=== PATIENT | male | born 1960 | race Two or more races ===

== ENCOUNTER 2018-12-03 12:59 | Emergency (ER) | payer OTHER ==
[~2018-12-03] VITALS: Ht 157.5 cm; Wt 81.6 kg
[2018-12-03] MEDS ORDERED: NKM (13:28)
[2018-12-03] MEDS ORDERED: Albuterol ud Inhalation HHN ONE (13:45)
--- NOTE | 2018-12-03 14:21 | NUR ---
Nursing Notes: Patient complaining of feeling dizzy and anxious while at work, also experienced to have tightness around throat, came to ER for assessment. patient is awake and alert to name, time, place, and situaition, no pain reported at this time,
[2018-12-03 14:30] VITALS: BP 139/88
--- NOTE | 2018-12-03 14:40 | Diagnostic Imaging Report ---
Indication: Dyspnea Comparison: None A single view chest radiograph was obtained. Findings: Cardiomediastinal appearance is within normal limits for age. The lungs are clear. Pulmonary vascularity is appropriate. The diaphragmatic contour is smooth and costophrenic angles are sharp. No pleural effusions are identified. The bones are unremarkable. Impression: No acute findings
--- NOTE | 2018-12-03 15:13 | Emergency Room Report ---
History of Present Illness General Chief Complaint: Dizziness Source: Patient Present Illness HPI Patient is a 58-year-old male presents after increased difficulty with breathing. Patient states that this had began while driving. He reports having increased tightness to his chest. He denies any fever. He reports having some tightness to the throat. Patient had been at work and driving at the time of onset. He denies any prior history of similar symptoms in the past. He does not take any medications regularly. He had not been vomiting or having any diarrhea. He reports some subjective fever. Denies leg pain or swelling. No abdominal pain. Denies recent chemical exposure. Allergies: Coded Allergies: IBUPROFEN (Verified Allergy, Unknown, 12/03/18) Patient History Past Medical History: see triage record Reviewed Nursing Documentation: PMH: Agreed; PSxH: Agreed Nursing Documentation-PMH Past Medical History: No Stated History Review of Systems All Other Systems: negative except mentioned in HPI Physical Exam Vital Signs Date Time Temp Pulse Resp B/P (MAP) Pulse Ox O2 Delivery O2 Flow Rate FiO2 12/03/18 13:25 99.0 70 19 159/90 (113) 96 Room Air 12/03/18 14:30 21 12/03/18 14:31 8.0 Sp02 EP Interpretation: reviewed, normal General Appearance: normal inspection, well appearing, no apparent distress, alert, GCS 15 Head: atraumatic ENT: normal ENT inspection, hearing grossly normal, normal voice, pharyngeal erythema Neck: normal inspection, full range of motion, supple, no bony tend Respiratory: normal inspection, normal breath sounds, no respiratory distress, no retraction, wheezing - slight good air movement Cardiovascular #1: regular rate, rhythm, no edema Gastrointestinal: normal inspection, normal bowel sounds, non tender, soft, no guarding, no hernia Genitourinary: no CVA tenderness Musculoskeletal: normal inspection, back normal, normal range of motion Neurologic: normal inspection, alert, oriented x3, responsive, director records management III-XII nml as tested, speech normal Psychiatric: normal inspection, judgement/insight normal, mood/affect normal Skin: no rash, normal color, normal inspection, warm/dry Lymphatic: normal inspection Medical Decision Making Diagnostic Impression: Primary Impression: Bronchospasm ER Course Patient presented for shortness of breath. Differential included but was not limited to anemia, pneumonia, pneumothorax, myocardial infarction, pericardial effusion, congestive heart failure, acidosis. Because of complexity of patient' s case laboratory tests and imaging studies were ordered. Patient was noted to have some associated shortness of breath which appears to be related to bronchospasm. EKG interpreted by me showed normal sinus rhythm without acute ST or T wave changes. Chest x-ray 1 view read by radiology showed no evidence of acute infiltrate or cardiomegaly with normal mediastinum. Patient does not have any known risk factors for pulmonary embolism. Patient was given breathing treatments as well as steroids with improvement in his difficulty with respiration. Patient appears to have a viral respiratory infection. No known chemical exposure. Patient was advised to remain off work until cleared by his worker's comp physician. EKG Diagnostic Results Rate: normal - 62 Rhythm: NSR ST Segments: no acute changes Last Vital Signs Date Time Temp Pulse Resp B/P (MAP) Pulse Ox O2 Delivery O2 Flow Rate FiO2 12/03/18 14:31 62 22 98 Room Air 8.0 36 66 18 100 12/03/18 13:25 99.0 159/90 (113) Status: improved Disposition: HOME, SELF-CARE Condition: Stable Scripts Albuterol Sulfate* (ALBUTEROL SULFATE MDI*) 8.5 Gm Hfa.aer.ad 2 PUFF INH Q6H, #1 EA 0 Refills Prov: Abner Siegel MD 12/03/18 Prednisone* (PREDNISONE*) 20 Mg Tablet 40 MG ORAL DAILY, #10 TAB Prov: Abner Siegel MD 12/03/18 Abner Siegel MD Dec 03, 2018 15:13
--- NOTE | 2018-12-03 15:15 | NUR ---
Nursing notes: breathing treatment given to patient by rt, patient remained awake with no distress noted.
[2018-12-03] MEDS ORDERED: PREDNISONE20 MG ORAL (15:18)
[2018-12-03] MEDS ORDERED: ALBUTEROL SULF8.5 GM INH (15:18)
[2018-12-03 16:24] VITALS: BP 130/85
--- NOTE | 2018-12-03 16:31 | NUR ---
Nursing Notes: Patient discharged home with discharge summary explained, all questions answered and medication list given, patient is able to walk with no gait impairment, he remains staturating at 99-100%. Hr is 71 with Bp of 130/85. patient has a temperature of 98.6 F taken orally, friend is awaiting for patient to be taken home,
== END 2018-12-03 16:24 | disposition home or self-care (01) ==
LOC: EMR 14:20
DX: R06.02 Shortness of breath (principal); R07.9 Chest pain, unspecified; Z88.8 Allergy status to other drugs, medicaments and biological substances
CPT/HCPCS: 71045; 93005; 94640; 94664; 99284; J7512